=== PATIENT | male | born 1955 | race Caucasian/White ===

== ENCOUNTER 2019-07-26 07:06 | Emergency (ER) | payer OTHER ==
--- OUTSIDE RECORDS SUMMARY | 2019-07-26 07:12 | XMS REPORT | Summary of Care ---
:1955 Author Organization [facility] Address [address] [place] [address] Care Team Providers Name Role Phone Gurdeep Ernst MD Primary Care Provider Other Unavailable Unavailable Reason for Visit Reason Comments Follow Up pt presents for follow up from ER with left leg/thigh cellulitis. Started thursday, was seen in office last , in ER on . Encounter Details Date Type Department Care Team Description 07/05/[address] [facility] Gurdeep Ernst MD Cellulitis of leg without foot, left (Primary Dx); Practice [address] [facility] Sciatica of left side; [address] [place] [address] Essential [place] [address] [phone] Allergies Active Allergy Reactions Severity Noted Date Comments Lisinopril PHYSICAL THERAPY COORDINATOR Reaction 08/17/2013 Eyes bulging Losartan Musculoskeletal 06/30/2012 Muscle cramps Statins Musculoskeletal 03/07/2015 Disabling myalgias documented as of this encounter (statuses as of 07/05/2019) Medications Medication Sig Dispensed Refills Start Date End Date Status aspirin (ECOTRIN) 81 Take 1 Tab by 0 03/17/2012 Active MG Oral Tab mouth DAILY. ECIndications: Routine general medical examination at a health care facility COMBIVENT RESPIMAT INHALE 1 PUFF 1 Inhaler 0 12/20/2018 Active 20-100 MCG/ACT FOUR TIMES Inhalation Aero Soln DAILY. atenolol-chlorthalidon TAKE 1 TABLET 90 Tab 1 02/17/2019 Active e (TENORETIC) 50-25 MG BY MOUTH Oral TabIndications: EVERY DAY Essential hypertension Omeprazole delayed rel TAKE 1 90 Cap 1 03/30/2019 Active cap 20 MG Oral CAPSULE CAPSULE BY DELAYED MOUTH EVERY RELEASEIndications: DAY Gastroesophageal reflux disease with esophagitis KLOR-CON 20 MEQ Oral TAKE 1 TABLET 90 Tab 0 05/04/2019 Active Tab CR BY MOUTH EVERY DAY Clindamycin HCl 300 MG Take 1 Cap by 0 Active Oral Cap mouth THREE TIMES DAILY. OXYcodone-acetaminophe Take 1 Tab by 28 Tab 0 07/05/2019 Active n (PERCOCET) 5-325 MG mouth EVERY Oral Tab SIX HOURS NEEDED (sciatica left). Max Daily Amount: 4 Tabs. amLodipine (NORVASC) TAKE 1 TABLET 90 Tab 0 02/03/2018 Discontinued 10 MG Oral BY MOUTH 9 TabIndications: EVERY DAY Essential hypertension cyclobenzaprine Take 1 Tab by 15 Tab 0 06/28/2019 Discontinued (FLEXERIL) 10 MG Oral mouth EVERY 9 Tab BEDTIME NEEDED (sciatica). documented as of this encounter (statuses as of 07/05/2019) Active Problems Problem Noted Date Morbid obesity due to excess calories 11/22/2018 Tobacco user 01/18/2018 Right knee pain 12/17/2016 Body mass index (BMI) of 37.0 to 37.9 in adult 04/21/2012 Dyslipidemia 03/17/2012 Hypertension 03/17/2012 Plantar fasciitis 03/17/2012 Overview: LEFT foot Villagran's esophagus Colon polyp Overview: 1 year refused Statin intolerance documented as of this encounter (statuses as of 07/05/2019) Immunizations Name Administration Dates Next Due Influenza (IM) Preservative Free 09/22/2018, 08/17/2017 Toradol (60 mg) 10/20/2016 documented as of this encounter Social History Tobacco Use Types Packs/Day Years Used Date Current Some Day Smoker Cigarettes 0.5 20 Quit: 11/09/2007 Smokeless Tobacco: Never Used Alcohol Use Drinks/Week oz/Week Comments Yes drinks beer-more on weekends Sex Assigned at Date Recorded Not on file Job Start Date Occupation Industry Not on file Not on file Not on file Travel History Travel Start Travel End No recent travel history available. documented as of this encounter Last Filed Vital Signs Vital Sign Reading Time Taken Comments Blood Pressure 114/72 07/05/2019 9:08 AM EDT Pulse 71 07/05/2019 9:08 AM EDT Temperature 36.9 07/05/2019 9:08 AM EDT C (98.4 F) Respiratory Rate - - Oxygen Saturation 99% 07/05/2019 9:08 AM EDT Inhaled Oxygen Concentration - - Weight 118 kg (260 lb 3.2 oz) 07/05/2019 9:08 AM EDT Height 185.4 cm (6' 1") 07/05/2019 9:08 AM EDT Body Mass Index 34.33 07/05/2019 9:08 AM EDT documented in this encounter Progress Notes Gurdeep Ernst MD - 07/05/2019 9:00 AM EDT PATIENT: Amadou Perry : 1955 DATE OF SERVICE: 07/05/2019 CHIEF COMPLAINT: Chief Complaint Patient presents with Follow Up pt presents for follow up from ER with left leg/thigh cellulitis. Started thursday, was seen in office last , in ER on . Subjective HISTORY OF PRESENT ILLNESS: Amadou Perry is a 64-y.o. male. HPI He saw PD last week for sciatica type pain left leg Began in buttocks all way to the foot. She gave him flexeril which not help. He has had this before Next day began with rash and fever left lower leg Sent to ER and diagnosis with cellulitis Not have this before . cmp ok wbc 14 blood cx negative . Given clindamycin and taken out of work. He is not much better for either. Sciatica still throbs The left leg still aches but less area of redness and no more fever Denies side effects to the clindamycin He wants to go to work in 2 days Past Medical History: Diagnosis Date B12 deficiency Villagran's esophagus 2012 Colon polyp 2012 1 year refused Diverticulosis internal hemorrhoid Hyperlipidemia Hypertension Obesity Plantar fasciitis 03/17/2012 Statin intolerance Family History Problem Relation Age of Onset Diabetes Unknown Current Outpatient Medications Medication Sig aspirin (ECOTRIN) 81 MG Oral Tab EC Take 1 Tab by mouth DAILY. atenolol-chlorthalidone (TENORETIC) 50-25 MG Oral Tab TAKE 1 TABLET BY MOUTH EVERY DAY Clindamycin HCl 300 MG Oral Cap Take 1 Cap by mouth THREE TIMES DAILY. COMBIVENT RESPIMAT 20-100 MCG/ACT Inhalation Aero Soln INHALE 1 PUFF FOUR TIMES DAILY. KLOR-CON 20 MEQ Oral Tab CR TAKE 1 TABLET BY MOUTH EVERY DAY Omeprazole delayed rel cap 20 MG Oral CAPSULE DELAYED RELEASE TAKE 1 CAPSULE BY MOUTH EVERY DAY OXYcodone-acetaminophen (PERCOCET) 5-325 MG Oral Tab Take 1 Tab by mouth EVERY SIX HOURS NEEDED (sciatica left). Max Daily Amount: 4 Tabs. No current facility-administered medications for this visit. Allergies Allergen Reactions Lisinopril PHYSICAL THERAPY COORDINATOR Reaction Eyes bulging Losartan Musculoskeletal Muscle cramps Statins Musculoskeletal Disabling myalgias Social History Socioeconomic History Marital status: Spouse name: Not on file Number of children: Not on file Years of education: Not on file Highest education level: Not on file Occupational History Not on file Social Needs Financial resource strain: Not on file Food insecurity: Worry: Not on file Inability: Not on file Transportation needs: Medical: Not on file Non-medical: Not on file Tobacco Use Smoking status: Current Some Day Smoker Packs/day: 0.50 Years: 20.00 Pack years: 10.00 Types: Cigarettes Last attempt to quit: 11/09/2007 Years since quittin.6 Smokeless tobacco: Never Used Substance and Sexual Activity Alcohol use: Yes Comment: drinks beer-more on weekends Drug use: No Sexual activity: Yes Partners: Female control/protection: Surgical Lifestyle Physical activity: Days per week: Not on file Minutes per session: Not on file Stress: Not on file Relationships Social connections: Talks on phone: Not on file Gets together: Not on file Attends yazdanism service: Not on file Active member of club or organization: Not on file Attends meetings of clubs or organizations: Not on file Relationship status: Not on file Intimate partner violence: Fear of current or ex partner: Not on file Emotionally abused: Not on file Physically abused: Not on file Forced sexual activity: Not on file Other Topics Concern Back Care Not Asked Bike Helmet Not Asked Blood Transfusions Not Asked Caffeine Concern Not Asked Exercise Not Asked Hobby Hazards Not Asked Comment: hunting International Travel Not Asked Service Not Asked Occupational Exposure Not Asked Seat Belt Not Asked Self-Exams Not Asked Sleep Concern Not Asked Special Diet Not Asked Stress Concern Not Asked Weight Concern Not Asked Social History Narrative Lives with domestic partner. Works at [email or web address]. Over the last 2 weeks, have you been feeling down, depressed, anxious, or hopeless?: 0 Over the past 2 weeks, have you felt little interest or pleasure in doing things ?: 0 REVIEW OF SYSTEMS: ROS Objective PHYSICAL EXAM: VITALS: BP 114/72 (BP Location: Left arm, Patient Position: Sitting) | Pulse 71 | Temp 98.4 F(36.9 C) | Ht 6' 1" (1.854 m) | Wt 260 lb 3.2 oz ( 118 kg) | SpO2 99% | BMI 34.33 kg/m Body mass index is 34.33 kg/m. Physical Exam Constitutional: No distress. Cardiovascular: Normal rate and regular rhythm. Pulmonary/Chest: Effort normal. No respiratory distress. Neurological: DTR equal, strength equal negative slr Skin: Still calderon red entire left LE but some receding from the outline especially superiorly Vitals reviewed. ASSESSMENT / IMPRESSION: ICD-9-CM ICD-10-CM 1. Cellulitis of leg without foot, left not sure how he got it and not rlated to the sciatica as this anterior. Consider raising clinda dose to 4 x a day and change antibiotics as should be farther along by now as still intense red He can try working but will likely swell 682.6 L03.116 CBC WITH DIFFERENTIAL SEDIMENTATION RATE 2. Sciatica of left side recurrent Trial percocet as not sleeping 724.3 M54.32 3. Essential hypertension 401.9 I10 BASIC METABOLIC PANEL Stable BP Plan Call if problems Author: Gurdeep Ernst MD 07/05/2019 22:32 documented in this encounter Plan of Treatment Health Maintenance Due Date Last Done Comments ZOSTER IMMUNIZATION SERIES 2004 (1 of 2) LIPID DISORDER SCREENING 08/05/2018 08/05/2017, 03/13/2016, 03/14/2015, Additional history exists DIABETES SCREENING 01/18/2019 01/18/2018, 08/05/2017, 03/13/2016, Additional history exists AAA SCREENING/SURVEILLANCE 2019 FALL RISK ASSESSMENT 2019 PNEUMOCOCCAL 65+YRS (1 of 2 2019 - PCV13) INFLUENZA VACCINE (#1) 2019 09/22/2018, 08/17/2017 DEPRESSION SCREENING 07/05/2020 07/05/2019, 01/18/2018 HPV IMMUNIZATION SERIES Aged Out No longer eligible based on patient's age to complete this topic MENINGOCOCCAL VACCINE IMM Aged Out No longer eligible based on patient's age to complete this topic documented as of this encounter Goals Goal Patient Goal Associated Recent Patient-Stated? Author Type Problems Progress Blood Pressure Blood Pressure 114/72 No Maria Luz, < 150/90 (07/05/2019 Norman Morris, 9:08 AM EDT) Note: This is an individualized treatment (blood pressure) goal for Amadou Perry: Displayed above (on the left) is your goal for blood pressure control. Your most recent blood pressure is also shown above, on the right. You should try to achieve blood pressures that are lower than your goal listed above (on the left). Weight loss vs. 18 mo Lifestyle 12.8 (07/05/2019 9:08 AM Norman Schuler MD max (lbs) >= 10 EDT) Note: This is an individualized lifestyle goal for Amadou Perry: Your body mass index (BMI) is more than 30. You should lose weight. A reasonable starting goal is to lose 10 pounds. Displayed above is how many pounds you have lost thus far towards your 10 pound weight loss goal. Take all prescribed medications as Self-management Norman Schuler MD directed Note: This is an individualized self-management goal for Amadou Perry: Please take all prescribed medications as directed. 1. Do not skip doses. If you cannot afford your medications, talk with your doctor. 2. Use a pill reminder system such as a pill box if needed. Your pharmacist can help you with this. 3. Contact your Pharmacy 5 days before your medication runs out. If you cannot take your medications for any reasons, talk with your doctor. 4. Please bring all of your medication bottles and inhalers (or a list of all your medications/inhalers) with you to every visit. Potential barriers to meeting all of your care plan goals will continue to be addressed on an ongoing basis. documented as of this encounter Procedures Procedure Name Priority Date/Time Associated Diagnosis Comments CBC WITH DIFFERENTIAL Routine 07/05/2019 10:23 Cellulitis of leg Results for this AM EDT without foot, left procedure are in the results section. BASIC METABOLIC PANEL Routine 07/05/2019 10:23 Essential Results for this AM EDT hypertension procedure are in the results section. SEDIMENTATION RATE Routine 07/05/2019 10:23 Cellulitis of leg Results for this AM EDT without foot, left procedure are in the results section. documented in this encounter Results BASIC METABOLIC PANEL (07/05/2019 10:23 AM EDT) Glucose 141 (H) 70 - 99 mg/dl [facility] BUN 15 9 - 20 mg/dl [facility] Creatinine 1.0 0.8 - 1.5 mg/dl [facility] Sodium 138 134 - 145 mmol/L [facility] Potassium 3.4 (L) 3.5 - 5.1 mmol/L [facility] Chloride 101 98 - 107 mmol/L [facility] CO2 24 22 - 30 mmol/L [facility] Calcium 9.6 8.3 - 10.1 mg/dl [facility] eGFR >60 See Interpretation [facility] Comment: Below ml/min/1.73ml [facility] Estimated GFR Interpretation: Above 60ml/min/1.73m2 = Normal Renal Function 30-59 ml/min/1.73m2 = Stage 3 Chronic Kidney Disease 15-29 ml/min/1.73m2 = Stage 4 Chronic Kidney Disease Less than 15 ml/min/1.73m2 = Stage 5 Chronic Kidney Disease The GFR value is calculated using the Modification of Diet in Renal Disease ( MDRD) Study Equation which can be found at: https://www.kidney.org/content/tyum-mhwvi-gkwmshfd BUN/Creatinine 15 6 - 22 RATIO [facility] Anion Gap 13 (H) 3 - 11 mmol/L [facility] Specimen Blood Performing Organization Address City/State/Zipcode Phone Number [facility] [address] [place] [id number] SEDIMENTATION RATE (07/05/2019 10:23 AM EDT) ESR 33 (H) 0 - 20 MM/HR [place] [facility] Comment: [facility] Methodology was changed 05/04/19. Please note updated reference range. Specimen Blood Performing Organization Address City/State/Zipcode Phone Number [facility] [address] [place] [address] CBC WITH DIFFERENTIAL (07/05/2019 10:23 AM EDT) WBC Count 7.49 4.23 - 9.07 K/uL [facility] RBC Count 4.78 4.30 - 5.89 M/UL [facility] Hemoglobin 15.8 13.7 - 17.5 g/dL [facility] Hematocrit 46.6 40.1 - 51.0 % [facility] MCV 97.5 (H) 79.0 - 92.2 FL [facility] MCH 33.1 (H) 25.7 - 32.2 PG [facility] MCHC 33.9 32.3 - 36.5 g/dL [facility] Platelet Count 282 163 - 337 K/uL [facility] MPV 10.7 9.4 - 12.4 FL [facility] RDW 13.0 11.6 - 14.4 % [facility] Neutrophil % 53.4 34.0 - 67.9 % [facility] Lymphocyte % 27.2 21.8 - 53.1 % [facility] Monocyte % 13.5 (H) 5.3 - 12.2 % [facility] Eosinophil % 3.6 0.8 - 7.0 % [facility] Basophil % 0.8 0.2 - 1.2 % [facility] nRBC % 0.0 0.0 - 0.2 % [facility] Neutrophil # 4.00 1.78 - 5.38 K/UL [facility] Lymphocyte # 2.04 1.32 - 3.57 K/UL [facility] Monocyte # 1.01 (H) 0.30 - 0.82 K/UL [facility] Eosinophil # 0.27 0.04 - 0.54 K/UL [facility] Basophil # 0.06 0.01 - 0.08 K/UL [facility] Immature Gran % 1.5 (H) 0.0 - 0.4 % [facility] Immature Gran # 0.11 (H) 0.00 - 0.03 K/uL [facility] NRBC # 0.00 0.00 - 0.12 K/uL [facility] Specimen Blood Performing Organization Address City/State/Zipcode Phone Number [facility] [address] [place] [id number] documented in this encounter Visit Diagnoses Diagnosis Cellulitis of leg without foot, left - Primary Cellulitis and abscess of leg, except foot Sciatica of left side Sciatica Essential hypertension Unspecified essential hypertension documented in this encounter Insurance Payer Benefit Plan / Subscriber ID Effective Dates Phone Address Type Group [employer] [facility] xxxxxxxxxxx 2017-Present Prerna Guarantor Name Account Type Relation to Date of Phone Billing Patient Address Amadou Perry Personal/Family 1955 [address] (Home) [place], [place] [phone] [id number] (Work) documented as of this encounter
[2019-07-26 07:20] VITALS: BP 164/76
[2019-07-26] MEDS ORDERED: Tetan/Diph/Pertus SYR(Tdap)* 0.5 ML SYR(BOOSTRIX) use SYR IM ONE (07:36)
--- NOTE | 2019-07-26 07:56 | UC ---
Minor Trauma HPI - HPI Summary HPI Summary: 2 DAYS AGO PATIENT SLIPPED WHILE GETTING INTO HIS 4 [address]. STRUCK THE BACK OF HIS HEAD ON THE METAL RUNNING BOARD. NO LOC. DENIES ANY HEADACHE, DIZZINESS , NAUSEA, VISUAL DISTURBANCES BUT DOES HAVE EXQUISITE TENDERNESS OVER THE AREA. LANDED ON HIS RIGHT ARM AND HAS AN ABRASION WITH SOME BRUISING. THE MOST PAIN IS IN HIS TAILBONE AREA. NOT UP TO DATE TETANUS. - History of Current Complaint Chief Complaint: UCBackPain Stated Complaint: TAILBONE AND LEG INJURY Time Seen by Provider: 07/26/19 07:26 Hx Obtained From: Patient Onset/Duration: Sudden Onset, Lasting Days, Still Present Onset Of Pain: Immediate Severity Initially: Moderate Severity Currently: Moderate Pain Intensity: 7 Pain Scale Used: 0-10 Numeric Mechanism Of Injury: Direct Blow Associated Signs And Symptoms: Positive: Ecchymosis. Negative: Loss Of Consciousness, Swelling - Allergies/Home Medications Allergies/Adverse Reactions: Allergies Allergy/AdvReac Type Severity Reaction Status Date / Time blood pressure medication Allergy Dizziness Uncoded 07/26/19 07:21 Home Medications: Home Medications Aspirin 81 mg PO DAILY 07/26/19 [History Confirmed 07/26/19] Calcium Carbonate [Calcium] 1 tab PO DAILY 07/26/19 [History Confirmed 07/26/19] PMH/Surg Hx/FS Hx/Imm Hx Cardiovascular History: Hypertension GI/ History: Gastroesophageal Reflux Other History Of: Negative For: Anticoagulant Therapy - Surgical History Surgical History: Yes Surgery Procedure, Year, and Place: ruptured ear drum. sinus surgery. nerve surgery in the right arm - Family History Known Family History: Positive: None, Non-Contributory - Social History Alcohol Use: Daily Alcohol Amount: 2 beers a day Substance Use Type: None Smoking Status (MU): Light Every Day Tobacco Smoker Amount Used/How Often: once in a while Household Exposure Type: Cigars Review of Systems All Other Systems Reviewed And Are Negative: Yes Constitutional: Positive: Negative Skin: Positive: Bruising Respiratory: Positive: Negative Cardiovascular: Positive: Negative Gastrointestinal: Positive: Negative Neurological: Positive: Negative Physical Exam Triage Information Reviewed: Yes Appearance: Well-Appearing, No Pain Distress, Well-Nourished Vital Signs: Initial Vital Signs Temp 97.7 F 07/26/19 07:12 Pulse 78 07/26/19 07:12 Resp 18 07/26/19 07:12 BP 164/76 07/26/19 07:12 Pulse Ox 94 07/26/19 07:12 Vital Signs Reviewed: Yes Eyes: Positive: Conjunctiva Clear ENT: Positive: Hearing grossly normal, TMs normal Neck: Positive: Supple, Nontender, No Lymphadenopathy Respiratory Exam: Normal Cardiovascular Exam: Normal Abdomen Description: Positive: Soft Musculoskeletal: Positive: No Edema, ROM Limited @ - BACK, Other: - TTP LOW BACK /COCCYX AREA Neurological: Positive: Alert, Other: - CN II-XII GROSSLY INTACT BILATERALLY. RAPID ALTERNATING MOVEMENTS INTACT. NEG PRONATOR DRIFT. 5/5 STRENGTH. FINGER TO NOSE INTACT. Psychological: Positive: Age Appropriate Behavior Skin: Positive: Other - BRUISING RIGHT FOREARM WITH 2CM ABRASION. HEMATOMA LEFT POSTERIOR SCALP - VERY TENDER Diagnostics - Radiology SACRUM/COCCYX XRAYS Radiology Interpretation Completed By: Radiologist Summary of Radiographic Findings: NO ACUTE OSSEOUS INJURY OF THE SACRUM AND COCCYX. PLAIN FILMS ARE RELATIVELY INSENSITIVE TO NONDISPLACED FRACTURES OF THE SACRUM AND COCCYX. IF THERE IS PERSISTENT CLINICAL CONCERN FOR SACROCOCCYGEAL OSSEOUS PATHOLOGY, BONE SCANNING MAY BE MORE SENSITIVE LUMBAR SPINE XRAYS Radiology Interpretation Completed By: Radiologist Summary of Radiographic Findings: 1. ATHEROSCLEROSIS. 2. DEGENERATIVE DISC DISEASE AND OSTEOARTHRITIS. 3. NO ACUTE OSSEOUS INJURY. HEAD CT W/O CONTRAST Radiology Interpretation Completed By: Radiologist Summary of Radiographic Findings: NO ACUTE INTRACRANIAL PATHOLOGY. Minor Trauma Course/Dx - Differential Dx/Diagnosis Provider Diagnosis: Coccyx contusion, Abrasion of forearm, right, Traumatic hematoma of scalp Discharge ED - Sign-Out/Discharge Documenting (check all that apply): Patient Departure All imaging exams completed and their final reports reviewed: Yes - Discharge Plan Condition: Stable Disposition: HOME Prescriptions: HYDROcodone/ACETAMIN 5-325 MG* [[place] 5-325 TAB*] 1 tab PO Q6H PRN #20 tab MDD 4 PRN Reason: Pain Naproxen [Naproxen 500 mg tab] 500 mg PO BID PRN #30 tablet PRN Reason: Pain Patient Education Materials: Coccyx Injury (ED), Abrasion (ED), Scalp Contusion in Adults (ED) Forms: *Work Release Referrals: Gurdeep Ernst MD [Primary Care Provider] - If Needed Additional Instructions: X-RAYS OF YOUR LOW BACK AND TAILBONE SHOW SOME DEGENERATIVE CHANGE BUT NO ACUTE BONY INJURY. CT SCAN OF YOUR HEAD SHOWS THE SOFT TISSUE SWELLING OVER THE AREA OF INJURY BUT NO ACUTE INTRACRANIAL ABNORMALITY AND NO BONY INJURY OF THE SKULL. YOUR SYMPTOMS SHOULD IMPROVE OVER THE NEXT COUPLE OF WEEKS. BE SURE TO STRETCH AND GO THROUGH SLOW RANGE OF MOTION EXERCISES TO PREVENT STIFFENING UP AND MAKING THE DISCOMFORT WORSE. TAKE NAPROXEN TWICE DAILY FOR DISCOMFORT AND USE HYDROCODONE FOR BREAKTHROUGH. BE SURE TO SIT ON ONLY SOFT SURFACES UNTIL YOUR PAIN IMPROVES. GO TO THE ED WITHOUT FAIL IF YOU DEVELOP WORSENING NUMBNESS/TINGLING IN YOUR LEGS, NUMBNESS IN THE GENITAL REGION, LOSS OF BOWEL/BLADDER CONTROL, INTOLERABLE PAIN OR ANY OTHER CONCERNING SYMPTOMS. GO TO THE ED WITHOUT FAIL IF YOU DEVELOP UNEQUAL PUPILS, VISUAL DISTURBANCE, GAIT INSTABILITY, SPEECH DIFFICULTY, NAUSEA/VOMITING, WORSENING HEADACHE, DIZZINESS, CONFUSION, WEAKNESS OR ANY OTHER CONCERNING SYMPTOMS. TETANUS IMMUNIZATION GIVEN (TDAP): You have been given an immunization against tetanus. Please record this in your records. In general, a booster is needed only once every 10 years. The tetanus shot protects against tetanus or "lockjaw," which is a complication of certain wound infections (the tetanus shot cannot protect against the actual infection). The immunization site may become warm and red due to local reaction. If this occurs, apply warm compresses and take aspirin or ibuprofen to reduce inflammation and discomfort. Return for evaluation if the reaction becomes severe. - Billing Disposition and Condition Condition: STABLE Disposition: Home
== END 2019-07-26 08:47 | disposition home or self-care (01) ==
LOC: UCEAST 07:06
DX: S00.03XA Contusion of scalp, initial encounter (principal); S30.0XXA Contusion of lower back and pelvis, initial encounter; S50.811A Abrasion of right forearm, initial encounter; W18.30XA Fall on same level, unspecified, initial encounter; Y92.9 Unspecified place or not applicable; I10 Essential (primary) hypertension; K21.9 Gastro-esophageal reflux disease without esophagitis; F17.210 Nicotine dependence, cigarettes, uncomplicated; Z79.82 Long term (current) use of aspirin; Z23 Encounter for immunization
CPT/HCPCS: 70450; 72100; 72220; 90471; 90715; 99212; G0463

== ENCOUNTER 2019-11-24 05:52 | Observation (INO) | payer OTHER ==
[~2019-11-24 05:52] MED LIST: Buffered Lidocaine 1% SYRIN* 1 ML/SYRINGE INTRADERM ONE
[2019-11-24] MEDS ORDERED: Lactated Ringers 1000 ML Bag* 1,000 ML IV SCH (06:00)
[2019-11-24] MEDS ORDERED: ceFAZolin 2 GM PREMIX in ORs 2 GM/50 ML BAG ONE (07:15)
[2019-11-24] MEDS ORDERED: Propofol* 10 MG/ML 20 ML BTL ONE (07:16)
[2019-11-24] MEDS ORDERED: Lidocaine 2% MPF* 2 ML VIAL ONE (07:17)
[2019-11-24] MEDS ORDERED: Succinylcholine* 20 MG/ML 10 ML VIAL ONE (07:17)
[2019-11-24] MEDS ORDERED: Rocuronium* 10 MG/ML VIAL ONE (07:18)
[2019-11-24] MEDS ORDERED: fentaNYL* 50 MCG/ML 5 ML VIAL (250 MCG VIAL) ONE ×2 (07:57→11:29)
[2019-11-24] MEDS ORDERED: Acetaminophen IV 1GM/100ML * 100 ML ONE (09:21)
[2019-11-24] MEDS ORDERED: Ketorolac INJ* 30 MG/ML 1 ML VIAL ONE (09:58)
[2019-11-24] MEDS ORDERED: Ondansetron INJ* 2 MG/ML VIAL ONE (09:59)
[2019-11-24] MEDS ORDERED: Bupivacaine 0.25% EPI 200,000* 30 ML SDV ONE (10:10)
[2019-11-24] MEDS ORDERED: Bacitracin INJECTION* 50,000 UNITS ONE (10:10)
[2019-11-24] MEDS ORDERED: Naloxone* 0.4 MG/ML 1 ML VIAL IV PRN (10:45)
[2019-11-24] MEDS ORDERED: HYDROmorphone INJ1* 1 MG/ML SYRINGE ONE (10:54)
[2019-11-24] MEDS: HYDROmorphone INJ1* 1 MG/ML SYRINGE IV PRN ×3 (10:55→11:19)
[2019-11-24] MEDS ORDERED: Ondansetron INJ* 2 MG/ML VIAL IV PRN (11:02)
[2019-11-24] MEDS ORDERED: Magnesium Hydroxide LIQ* 30 ML UDC PO PRN (11:02)
[2019-11-24] MEDS ORDERED: oxyCODONE TAB* 5 MG TAB PO PRN (11:02)
--- NOTE | 2019-11-24 13:52 | CONS ---
CC: Dr. Chung; Dr. Ernst * CONSULTATION REPORT: DATE OF CONSULT: 11/24/19 PRIMARY CARE PROVIDER: Dr. Ernst. REQUESTING PHYSICIAN: Consultation was requested by Dr. Chung from Neurosurgery in regards of medical management of patient after back surgery. CHIEF COMPLAINT: Back pain and left foot numbness and tingling. HISTORY OF PRESENT ILLNESS: Amadou Perry is a 64-year-old male with history of degenerative disk disease as well as hypertension who has had problems with lower back pain and left foot tingling from quite some time. He had been seen by Dr. Chung and today he is postoperative day 0 after lumbar diskectomy performed by Dr. Chung. A consult was recommended in regards of management of the patient's chronic medical conditions. Postoperatively, the patient is doing well. His left foot tingling resolved. He complains of bilateral shoulder pain from positioning in the OR table. PAST MEDICAL HISTORY: 1. Vitamin B12 deficiency. 2. Villagran's esophagus. 3. Diverticulosis. 4. Hyperlipidemia. 5. Hypertension. 6. Obesity. 7. History of . MEDICATIONS AT HOME: Include: 1. Percocet 5/325 mg 1 tablet on a p.r.n. basis. 2. Coenzyme Q10 one tablet daily. 3. Potassium chloride 20 mEq daily. 4. Omeprazole 20 mg daily. 5. Magnesium oxide 250 mg at bedtime. 6. Fish oil 2 capsules daily. 7. Ferrous sulfate 325 mg daily. 8. Atenolol/hydrochlorothiazide 50/25 mg at bedtime. 9. Aspirin 81 mg daily. 10. Ascorbic acid 1000 mg daily. ALLERGIES: The patient has history of allergy to LISINOPRIL and it is noted that "eyes were bulging." LOSARTAN caused muscle cramps, and STATINS caused severe myalgias. FAMILY HISTORY: Positive for diabetes in mother. 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 He smokes half a pack of cigarettes a day and has been doing so for 20 years. He drinks 3 beers a day and "some bourbon." He denies any drug use. As his surrogate, he names his son, Russell Perry. REVIEW OF SYSTEMS: Please see history of present illness. All the remaining 12 systems were reviewed with the patient and were otherwise negative. Please also note that the patient stated that he was diagnosed with obstructive sleep apnea in the past, but has not been able to tolerate CPAP and he does not use it at home. PHYSICAL EXAM: Blood pressure of 119/53, heart rate of 48 and regular, respiratory rate 16, oxygen saturation 95% on 1 L of oxygen nasal cannula, temperature 97.0. General: The patient is a very pleasant 64-year-old male, who is in no acute distress. The patient is alert and oriented x3. HEENT: Head: Atraumatic, normocephalic. Eyes: Pupils equal, reactive to light and accommodation. Oropharynx clear. Mucosa moist. Neck: Supple. No JVD. No bruits bilaterally. Cardiovascular: Regular rate and rhythm, bradycardia. No murmur. Respiratory: Clear to auscultation bilaterally. Abdomen: Soft, nontender. Bowel sounds present in all 4 quadrants. Extremities: There is no edema. Pulses are +2 bilaterally. No clubbing or cyanosis. Neuro Evaluation: Speech is clear. Cranial nerves II through XII grossly intact. Motor strength is 5/5 bilaterally. Sensation grossly intact. On evaluation of the skin, the patient's lower back dressings were not removed during the evaluation. Otherwise, no rashes noted. ASSESSMENT AND PLAN: 1. The patient is status post minimally invasive lumbar diskectomy by Dr. Chung. In regards of postoperative management of this patient that is going to be as per Neurosurgery. 2. For the patient's hypertension, the patient is currently slightly bradycardic, but hemodynamically stable. We will continue the patient's atenolol at bedtime. 3. For DVT prophylaxis, the patient is at the age of 64, but postoperative day 0. We will place sequential compression devices. We will discuss with Dr. Chung if the patient can be put on heparin subcutaneously day after surgery. 4. The patient has history of obstructive sleep apnea and likely will need oxygen postoperatively until he is ambulatory. 5. The patient's code status is full. His surrogate is his son. TIME SPENT: Approximately 55 minutes was spent on consultation of this patient , more than half that time was spent [id number] with the patient during the interview and physical exam. [id number]/[facility] #: [id number] MAKI
[2019-11-24] MEDS: Acetaminophen TAB* 325 MG PO PRN (14:41)
[2019-11-24] MEDS: oxyCODONE TAB* 5 MG TAB PO PRN ×2 (14:42→20:21)
[2019-11-24] MEDS ORDERED: Potassium Chlor TAB* 20 MEQ TAB.ER PO SCH (21:00)
[2019-11-24] MEDS ORDERED: Magnesium Oxide TAB* 400 MG PO SCH (21:00)
[2019-11-24] MEDS ORDERED: Atenolol TAB* 50 MG PO SCH (21:00)
[2019-11-24] MEDS ORDERED: Pantoprazole TAB * 40 MG TAB PO SCH (21:00)
--- NOTE | 2019-11-25 02:02 | OP ---
DATE OF OPERATION: 11/24/19 - ROOM #338 DATE OF : 53 SURGEON: Danielle Chung MD ANESTHESIA: General. PRE-OP DIAGNOSIS: Left L5-S1 herniated nucleus pulposus. POST-OP DIAGNOSIS: Left L5-S1 herniated nucleus pulposus. OPERATIVE PROCEDURE: The patient underwent a left L5-S1 MIS diskectomy. ESTIMATED BLOOD LOSS: 10 cc. COMPLICATIONS: None. SUMMARY: The patient is a very pleasant 64-year-old gentleman that was reported to have sustained a fall in the back of his truck. He developed severe back pain radiating to the left lower extremity. MRI revealed left L5-S1 disk herniation. The patient failed conservative treatment modalities and was offered the option of a left microdiskectomy at L5-S1. After explaining the expectations, limitations, and possible complications of the procedure to the patient and his fiancee with complications including, but not limited to bleeding, infection, risk of injury to adjacent structures, coma, paralysis, , need for additional procedures, anesthesia risks, stroke, blindness, cancer, instability, spinal fluid leak, hematoma formation, need for additional procedures, loss of bladder or bowel control, injury to intraabdominal contents , bladder or bowel,the patient was agreeable to proceed with surgery and informed consent was obtained. The patient understood that his condition may not improve and, in fact, may get worse after surgery and that he may need to have additional procedures in the future. The patient understood that the operative plan may be modified according to intraoperative findings and conditions and that the case may be abandoned or done in more than 1 stages. The patient understands that he may require prolonged hospitalization, prolonged rehabilitation, prolonged ICU stay. DESCRIPTION OF PROCEDURE: The patient was brought to the operating room and was placed under general anesthesia by the anesthesia team. He was carefully positioned prone on the Cody frame on the Kishore table and all bony prominences were meticulously padded. His skin was prepped and draped in the standard fashion. After appropriate surgical pause and patient identification, the incision site was marked with the help of an intraoperative fluoroscopic imaging. A skin incision was made with a #10 surgical blade. This incision was advanced with Bovie cautery. After dividing the dorsal fascia, the [employer] tubular retractor system was inserted over a series of tubular dilators. The intraoperative microscope was brought into the field and after exposing the left lamina of L5 and the medial L5-S1 facet, a high-speed drill and Kerrison punches were used to perform a small laminotomy and partial laminectomy. The ligamentum flavum was gently elevated and the thecal sac and the S1 nerve root was readily identified. Foraminotomy was performed with Kerrison punches and the thecal sac and the nerve root was then gently retracted towards the midline. A big subligamentous disk protrusion was identified with partial opacification. I then excised the posterior longitudinal ligament and annulus fibrosis with a #15 surgical blade. Disk fragments were removed relieving as well as diskectomy was performed. At the end of the diskectomy and after copious irrigation with meticulous hemostasis and meticulous inspection, the thecal sac and the nerve root was found to be free of any pressure phenomenon. Intraoperative fluoroscopic imaging confirmed again the appropriate surgical level and then after copious irrigation confirmation of meticulous hemostasis and meticulous inspection, the tubular retractor was gently removed. The dorsal fascia defect was approximated with 0 interrupted Vicryl sutures. The subcutaneous tissues were approximated with inverted interrupted 2-0 Vicryl sutures. The skin was covered with Dermabond and sterile dressings. At the end of the procedure, all counts were reported to be correct. The patient remained hemodynamically stable throughout the case. The patient was then turned supine, was extubated, and was transferred to Recovery in excellent condition. [id number]/[facility] #: [id number] MAKI
[2019-11-25 07:59] VITALS: BP 95/50
[2019-11-25] MEDS: Acetaminophen TAB* 325 MG PO PRN (08:02)
[2019-11-25 08:05] LABS: ABS Basophils 0.1 10^3/ul (0-0.2); ABS Eosinophils 0.2 10^3/ul (0-0.6); ABS Lymphocytes 1.6 10^3/ul (1.0-4.8); ABS Neutrophils 6.5 10^3/ul (1.5-7.7); Eosinophil % 2.4 %; Hematocrit 42 % (42-52); Hemoglobin 14.6 g/dL (14.0-18.0); Lymphocyte % 17.4 %; Mean Corpuscular HGB Conc 35 g/dL (31-36); Mean Corpuscular Hemoglobin 36 pg (27-31); Mean Corpuscular Volume 103 fL (80-94); Platelet Count 239 10^3/uL (150-450); Red Blood Count 4.06 10^6 /uL (4.18-5.48); Red Cell Distribution Width 13 % (10-15); White Blood Count 9.5 10^3/uL (3.5-10.8)
[2019-11-25 08:20] LABS: BUN/Creatinine Ratio 15.5 (8-20); EGFR African American 87.7 (>60); EGFR Non-African American 72.5 (>60); Potassium 3.9 mmol/L (3.5-5.0)
[2019-11-25] MEDS ORDERED: Ferrous Sulfate TAB* 325 MG PO SCH (09:00)
--- NOTE | 2019-11-25 09:12 | PN ---
Progress Note - Progress Note Date of Service: 11/25/19 SOAP: Subjective: []Patient is resting comfortably. No events ON. Tolerated procedure well yesterday. Ambulates, Tolerates po well, Voids. Preop LLE pain has resolved. Wants to go home. Objective: []VSS, Afebrile Wound s,c,d AAOx3 DOM, CN II-XII grossly intact Motor 5/5 all extremities Sensory grossly intact to light touch Assessment: []64 yom POD#1 Left L5-S1 MIS discectomy Plan: []Monitor VS, Neurochecks Encourage ambulation DC plan today DC instructions were given to the patient. No lifting, No bending, No driving. Keep incision dry. May shower after two days. No baths. Follow up in our office in 7-10 days. Appreciate IM care Tate Chung MD
--- NOTE | 2019-11-25 12:36 | DS ---
CC: Dr. Chung; Dr. Ernst * DISCHARGE SUMMARY: DATE OF ADMISSION: 11/24/19 DATE OF DISCHARGE: 11/25/19 PRIMARY CARE PROVIDER: Dr. Ernst. NEUROSURGEON: Dr. Chung. DISPOSITION AT DISCHARGE: Home. CONDITION ON DISCHARGE: Stable. DISCHARGE DIAGNOSIS: Status post L5-S1 minimally invasive diskectomy performed by Dr. Chung on 11/24/19. SECONDARY DIAGNOSES: 1. History of hypertension. 2. Vitamin B12 deficiency. 3. Villagran esophagus. 4. Diverticulosis. 5. Hyperlipidemia. MEDICATIONS AT DISCHARGE: Include Percocet 5/325 mg 1 tablet every 6 hours p.r.n. The patient is prescribed up to 4 tablets a day for a 5-day supply, which is a total of 20 tablets. I-STOP was checked and the last time the patient had a prescription for Percocet was on 11/01/19 and that was for a 15- day supply. Remaining medications include: 1. Vitamin C 1000 mg daily. 2. Aspirin 81 mg daily. 3. Atenolol/hydrochlorothiazide 50/25 one tablet at bedtime. 4. Ferrous sulfate 325 mg daily. 5. Fish oil concentrate 2 capsules daily. 6. Mag-Ox 250 mg at bedtime. 7. Omeprazole 20 mg at bedtime. 8. Klor-Con 20 mEq at bedtime. 9. Coenzyme Q10 one tablet daily. LABORATORY DATA PERFORMED DURING THE HOSPITAL STAY: Included white blood cell count of 9.5, hemoglobin of 14.6, hematocrit of 42, and platelets of 239. MCV was macrocytic at 103. Sodium was 137, potassium 3.9, chloride 103, carbon dioxide 27, BUN . PROCEDURE PERFORMED: Included minimally invasive L5-S1 diskectomy performed by Dr. Chung on 11/24/19. HOSPITALIZATION COURSE: Amadou Perry is a 64-year-old male with history of degenerative disk disease of the lumbar spine, who was admitted after an elective diskectomy performed by Dr. Chung on 11/24/19. Post-operatively, he did very well. On the day of discharge, he had no longer problems with tingling in the left foot that had been bothering him before. He is ambulating in the hallways without any neuro deficit and he is going to be discharged home. Recommendation is to follow up with Dr. Chung next week and call his office for a followup appointment. The patient is also recommended to follow up with his primary care provider in 4 to 7 days. The patient was prescribed a 5-day supply of Percocet. In regard of wound care, the patient is not to take bath, may shower in 2 days and dab the wound with dry cloth. Otherwise, he is to keep his incision dry for the next 2 days. In regard of activity, the patient is to not be driving, lifting or bending unless he sees Dr. Chung for followup. PHYSICAL EXAM AT THE TIME OF DISCHARGE: Blood pressure of 122/67, heart rate of 65 and regular, respiratory rate 16, oxygen saturation 96% on room air, temperature 97.9. General: The patient is a pleasant 64-year-old male, who is in no acute distress. The patient is alert and oriented x3. HEENT: Head atraumatic, normocephalic. Eyes: Pupils equal and reactive to light and accommodation. Oropharynx clear. Mucosa moist. Neck: Supple. No JVD. No bruits bilaterally. Cardiovascular: Regular rate and rhythm. No murmur. Respiratory: Clear to auscultation bilaterally. Abdomen: Soft, nontender. Bowel sounds present in all 4 quadrants. Extremities: There is no edema. Pulses +2 bilaterally. No clubbing or cyanosis. On neuro evaluation, speech clear. Cranial nerves II through XII grossly intact. Motor strength is 5/5 bilaterally. On evaluation of the skin, the patient's lumbar area incision was not uncovered for evaluation, that was left to be evaluated by Dr. Chung prior to the patient's discharge. Please note that this is a short summary of the patient's hospitalization, please refer to further medical records for details. TIME SPENT: Approximately 40 minutes was spent on the patient's discharge. [id number]/[facility] #: [id number] [facility]
== END 2019-11-25 10:10 | disposition home or self-care (01) ==
LOC: OR 05:52 → SSU 11:02
PROVIDERS: ADMIT Neurological Surgery; ATTEND Internal Medicine
DX: M51.36 Other intervertebral disc degeneration, lumbar region (principal); M51.17 Intervertebral disc disorders with radiculopathy, lumbosacral region; F17.210 Nicotine dependence, cigarettes, uncomplicated; I10 Essential (primary) hypertension; E53.8 Deficiency of other specified B group vitamins; K22.70 Barrett's esophagus without dysplasia; K57.90 Diverticulosis of intestine, part unspecified, without perforation or abscess without bleeding; E78.5 Hyperlipidemia, unspecified; E66.9 Obesity, unspecified; Z79.82 Long term (current) use of aspirin; Z79.899 Other long term (current) drug therapy
CPT/HCPCS: 36415; 76000; 80048; 85025; A9270-GY; G0378; J0330; J0690; J1170; J1885; J2405; J2704; J3010